=== PATIENT | male | born 2000 | race Caucasian/White ===

== ENCOUNTER 2018-10-27 07:19 | Emergency (ER) | payer BC ==
[~2018-10-27] VITALS: Ht 162.6 cm; Wt 78.1 kg
--- NOTE | 2018-10-27 07:54 | NUR ---
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
--- NOTE | 2018-10-27 07:59 | NUR ---
LATE ENTRY FOR 0755: PT TO ROOM AT THIS TIME.
--- NOTE | 2018-10-27 08:23 | NUR ---
18 Y/O MALE PRESENTS TO ED WITH C/O HILL. PER PT "I WOKE UP THIS MORNING AT 0540 WITH THE START OF A MIGRAINE. I WENT STRAIGHT TO GET MY MEDS. I HAVE A HX OF THEM." NO ACUTE DISTRESS NOTED. LIGHTS OFF PER PT REQUEST. NO C/O V/D, TRAUMA, SYNCOPE, CP., SOB. PT PLACED ON CONT PULSE OX,NIBP.
[2018-10-27] MEDS ORDERED: KETOROLAC 30 MG/1 ML IM ONE (08:30)
[2018-10-27] MEDS ORDERED: KETOROLAC 30 MG/1 ML ONE (08:36)
--- NOTE | 2018-10-27 08:52 | NUR ---
pt playing on cell phone with all lights off. no acute distress noted.
[2018-10-27 09:34] VITALS: BP 131/18
--- NOTE | 2018-10-27 09:34 | NUR ---
Patient/Caregiver given discharge instructions and they have confirmed that they understand the instructions. Patient ambulatory with steady gait. PT LEFT WITH ALL PERSONAL BELONGINGS.
== END 2018-10-27 09:36 | disposition home or self-care (01) ==
LOC: ED 09:06
DX: G43.909 Migraine, unspecified, not intractable, without status migrainosus (principal); J45.909 Unspecified asthma, uncomplicated
CPT/HCPCS: 96372; 99283; J1885